=== PATIENT | female | born 1950 | race Caucasian/White ===

== ENCOUNTER 2019-01-16 05:06 | Day surgery (SDC) | payer MEDICARE, BC ==
[2019-01-11 10:04] LABS: BASOPHILS % (AUTO) 0.7 % (0-1); EOSINOPHILS # (AUTO) 0.2 X10'3 (0-0.9); HEMATOCRIT 37.1 % (35.0-45.0); HEMOGLOBIN 12.1 g/dl (12.0-16.0); LYMPHOCYTES # (AUTO) 1.6 X10'3 (1.1-4.8); LYMPHOCYTES % (AUTO) 23.6 % (21-51); MEAN CORPUSCULAR HEMOGLOBIN 28.9 PG (27.0-31.0); MEAN CORPUSCULAR HGB CONC 32.7 g/dL (33.0-36.5); MEAN CORPUSCULAR VOLUME 88.3 FL (78-98); MEAN PLATELET VOLUME 8.5 FL (7.4-10.4); MONOCYTES # (AUTO) 0.5 X10'3 (0-0.9); MONOCYTES % (AUTO) 7.8 % (2-12); NEUTROPHILS # (AUTO) 4.5 X10'3 (1.8-7.7); NEUTROPHILS % (AUTO) 64.9 % (42-75); PLATELET COUNT 294 X10'3 (140-440); RED CELL DISTRIBUTION WIDTH 16.4 % (11.5-14.5); WHITE BLOOD COUNT 6.9 X10'3 (4.5-11.0)
[2019-01-11 10:13] LABS: ALBUMIN 3.3 G/DL (3.4-5.0); ANION GAP 8 (8-16); BLOOD UREA NITROGEN 14 MG/DL (7-18); BUN/CREATININE RATIO 24.1 (6.6-38.0); CALCIUM 8.6 MG/DL (8.5-10.1); CHLORIDE 106 MMOL/L (99-107); CREATININE 0.58 MG/DL (0.40-0.90); GLUCOSE 119 MG/DL (70-104); POTASSIUM 4.2 MMOL/L (3.5-5.1); SODIUM 143 MMOL/L (135-145); TOTAL CARBON DIOXIDE 28.8 MMOL/L (24-32); eGFR > 90 ML/MIN
[2019-01-11 10:15] LABS: PARTIAL THROMBOPLASTIN TIME 24 SECONDS (22-32)
[2019-01-16] VITALS (13 sets, daily range): BP systolic 122–166; BP diastolic 45–72
[~2019-01-16] VITALS: Ht 157.5 cm; Wt 89.9 kg
[~2019-01-16 05:06] MED LIST: ASPI-41 PO; DULO-31 PO; EST1T PO; MELA3TAB64 PO; PROG200C11 PO; THYR120T14
[2019-01-16] MEDS ORDERED: METF500T20 PO (05:40)
[2019-01-16] MEDS ORDERED: LISI10TA4 PO (05:40)
[2019-01-16] MEDS ORDERED: LORazepam 0.5 MG tablet PO PRN (05:40)
[2019-01-16] MEDS ORDERED: LIDOcaine/PRILOcaine 5gm cream TP ONE (05:40)
[2019-01-16] MEDS ORDERED: PRAS25CA7 (05:40)
[2019-01-16] MEDS ORDERED: diphenhydrAMINE 25mg capsule PO PRN (05:40)
[2019-01-16] MEDS ORDERED: normal saline 1,000 ML IV SCH (05:40)
[2019-01-16] MEDS ORDERED: B12 (05:40)
[2019-01-16] MEDS ORDERED: fentaNYL/PF 50MCG/1 ML 2ML syringe ONE (06:04)
[2019-01-16] MEDS ORDERED: midazolam 2 mg/2 ml injection ONE (06:04)
[2019-01-16] MEDS ORDERED: verapamil 2.5 mg/ml inj IV ONE (06:04)
[2019-01-16] MEDS ORDERED: nitroGLYCERIN-Tridil 50MG/D5W 250 ML IV ONE (06:04)
[2019-01-16] MEDS ORDERED: iohexol 350MG/ML 100ml bottle IV ONE (06:05)
[2019-01-16] MEDS ORDERED: heparin 1,000unit/ml 10ml vial 10 ML ONE (06:05)
[2019-01-16] MEDS ORDERED: LIDOcaine 1% (10mg/ml)w/preservative injection 20ml MDV ONE (06:05)
[2019-01-16] MEDS ORDERED: proCHLORperazine 10 MG/2 ml inj IV PRN (07:20)
[2019-01-16] MEDS ORDERED: OXAZEpam 15mg capsule PO PRN (07:20)
[2019-01-16] MEDS ORDERED: HYDROcodone/acetaminophen 10/325mg tab PO PRN (07:20)
[2019-01-16] MEDS ORDERED: HYDROcodone/acetaminophen 5mg/325mg tablet PO PRN (07:20)
[2019-01-16] MEDS ORDERED: ondansetron/PF 4mg/2ml inj IV PRN (07:20)
== END 2019-01-16 10:00 | disposition home or self-care (01) ==
LOC: SSTAY O 05:06
PROVIDERS: ATTEND Internal Medicine Interventional Cardiology
DX: I25.10 Atherosclerotic heart disease of native coronary artery without angina pectoris (principal); E03.9 Hypothyroidism, unspecified; I10 Essential (primary) hypertension; E11.9 Type 2 diabetes mellitus without complications; E78.5 Hyperlipidemia, unspecified; F32.9 Major depressive disorder, single episode, unspecified; K21.9 Gastro-esophageal reflux disease without esophagitis; I35.1 Nonrheumatic aortic (valve) insufficiency; Z86.73 Personal history of transient ischemic attack (TIA), and cerebral infarction without residual deficits; Z79.899 Other long term (current) drug therapy; Z79.82 Long term (current) use of aspirin; Z79.84 Long term (current) use of oral hypoglycemic drugs; Z88.5 Allergy status to narcotic agent; Z88.2 Allergy status to sulfonamides; Z98.84 Bariatric surgery status; Z96.651 Presence of right artificial knee joint; Z98.890 Other specified postprocedural states; Z82.49 Family history of ischemic heart disease and other diseases of the circulatory system; Z83.3 Family history of diabetes mellitus
CPT/HCPCS: 36415; 80048; 82948; 85025; 85610; 85730; 93005; 93458; 99152; C1769; C1894; J1644; J2001; J2250; J3010; J7030; Q0163; Q9967; A5120; J3490

== ENCOUNTER 2022-10-30 06:28 | Day surgery (SDC) | payer MEDICARE, BC ==
[2022-10-21 11:44] LABS: BASOPHILS % (AUTO) 0.7 % (0-1); EOSINOPHILS # (AUTO) 0.2 X10'3 (0-0.9); LYMPHOCYTES # (AUTO) 1.7 X10'3 (1.1-4.8); LYMPHOCYTES % (AUTO) 24.6 % (21-51); MEAN CORPUSCULAR HGB CONC 32.4 g/dL (33.0-36.5); MEAN CORPUSCULAR VOLUME 92.7 FL (78-98); MEAN PLATELET VOLUME 8.4 FL (7.4-10.4); MONOCYTES # (AUTO) 0.7 X10'3 (0-0.9); MONOCYTES % (AUTO) 9.7 % (2-12); NEUTROPHILS # (AUTO) 4.3 X10'3 (1.8-7.7); PRE OP HEMATOCRIT 41.2 % (35.0-45.0); PRE OP HEMOGLOBIN 13.3 g/dL (12.0-16.0); PRE OP PLATELET COUNT 228 X10'3 (140-440); RED BLOOD COUNT 4.44 X10'6 (4.20-5.60); RED CELL DISTRIBUTION WIDTH 20.5 % (11.5-14.5)
[2022-10-21 11:56] LABS: ALBUMIN 3.7 G/DL (3.4-5.0); ALBUMIN/GLOBULIN RATIO 1.4 (1.1-1.5); ALKALINE PHOSPHATASE 88 IU/L (46-116); BLOOD UREA NITROGEN 29 MG/DL (7-18); BUN/CREATININE RATIO 38.2 (10.0-20.0); CALCIUM 8.9 MG/DL (8.5-10.1); CHLORIDE 105 MMOL/L (99-107); CREATININE 0.76 MG/DL (0.40-0.90); PRE OP ALT 34 U/L (30-65); PRE OP ANION GAP 6 (8-16); PRE OP AST 27 U/L (10-37); PRE OP BILIRUB, TOTAL 0.3 MG/DL (0.0-1.0); PRE OP GLUCOSE 100 MG/DL (70-104); PRE OP POTASSIUM 4.7 MMOL/L (3.4-5.1); PRE OP SODIUM 140 MMOL/L (135-145); TOTAL CARBON DIOXIDE 29.1 MMOL/L (24-32); TOTAL PROTEIN 6.4 G/DL (6.4-8.2); eGFR 75 ML/MIN
[~2022-10-30] VITALS: Ht 157.5 cm; Wt 83.6 kg
[~2022-10-30 06:28] MED LIST changes: +ACET-1008 PO; -ASPI-41 PO; +B COMPLEX; +DOCUMENT DATE & TIME OF BETA-BLOCKER PO ONE; -EST1T PO; +IBUP-24 PO; +IRON; +LISI10TA27 PO; +MELA10TA2 PO; -MELA3TAB64 PO; +METF-900 PO; +METO-395 PO; -PROG200C11 PO; +ROSU5TAB12 PO; -THYR120T14; +VIT D3; +WARF4TAB69 PO; +cefazolin 2gm/D5W 100mL 100 ML IV ONE; +famotidine 20mg tablet PO ONE; +ringers solution, lacted 1,000 ML IV SCH
[2022-10-30] MEDS ORDERED: BUPIVAcaine/PF 2.5mg/ml (0.25%) 10ml vial ONE (06:39)
[2022-10-30 07:15] VITALS: BP 144/105
[2022-10-30] MEDS ORDERED: LIDOcaine 0.5% (5mg/ml) 50ml vial ONE (07:19)
[2022-10-30] MEDS ORDERED: proCHLORperazine 10 MG/2 ml inj IV PRN (07:20)
[2022-10-30] MEDS ORDERED: acetaminophen 1,000mg/100ml IV 100 ML IV PRN (07:20)
[2022-10-30] MEDS ORDERED: ondansetron/PF 4mg/2ml inj IV PRN (07:20)
[2022-10-30] MEDS ORDERED: meperidine/PF 25mg/ml syringe IV PRN (07:20)
[2022-10-30] MEDS ORDERED: fentaNYL/PF 50MCG/1 ML 2ML syringe IV PRN ×2 (07:20)
[2022-10-30] MEDS ORDERED: labetalol 20mg/4ml (5mg/ml) syringe IV PRN (07:20)
[2022-10-30] MEDS ORDERED: hydrALAZINE 20mg/ml inj. IV PRN (07:20)
[2022-10-30] MEDS ORDERED: HYDROmorphone/PF 0.2 MG/ML SYRINGE IV PRN ×2 (07:20)
[2022-10-30] MEDS ORDERED: ringers solution, lacted 1,000 ML IV SCH (07:20)
[2022-10-30] MEDS ORDERED: midazolam 1 mg/ML 2ml injection ONE (08:07)
[2022-10-30] MEDS ORDERED: fentaNYL/PF 50MCG/1 ML 2ML syringe ONE (08:07)
[2022-10-30] MEDS ORDERED: propofol inj 20 ML IV ONE (08:16)
[2022-10-30 08:22] LABS: APTT 28 SECONDS (22-32)
[2022-10-30 08:34] VITALS: BP 180/73
--- NOTE | 2022-10-30 08:34 | NUR ---
Received from OR via [facility] , accompanied by Anesthesiologist and report given by Anesthesiolgist. patient with 20g piv in right ue running lr at 100. patient with splint to left ue that is cdi. fingers pwd and has + cap refill. denies pain at this itme. Addendum: 10/30/22 at 0847 by Ryder Sanchez RN, RN Amended: Links added.
[2022-10-30 08:40] VITALS: BP 160/61
[2022-10-30 08:50] VITALS: BP 156/58
[2022-10-30 09:00] VITALS: BP 149/63
--- NOTE | 2022-10-30 09:10 | NUR ---
ABLE TO SAFELY AMBULATE AND TRANSFER SELF. IV TAKEN OUT WITHOUT ANY COMPLICATIONS. ALL DISCHARGE INSTRUCTIONS COVERED WITH PATIENT AND ALL QUESTIONS ANSWERED. PATIENT TAKEN OUT VIA WHEELCHAIR TO PERSONAL VEHICLE WHERE FAMILY/FRIEND DROVE PATIENT HOME. Addendum: 10/30/22 at 0910 by Ryder Sanchez RN, RN Amended: Links added.
== END 2022-10-30 09:04 | disposition home or self-care (01) ==
LOC: PAS 06:28
PROVIDERS: ATTEND Orthopaedic Surgery Hand Surgery
DX: G56.02 Carpal tunnel syndrome, left upper limb (principal); M19.071 Primary osteoarthritis, right ankle and foot; G47.33 Obstructive sleep apnea (adult) (pediatric); E11.40 Type 2 diabetes mellitus with diabetic neuropathy, unspecified; F32.A Depression, unspecified; I10 Essential (primary) hypertension; J45.909 Unspecified asthma, uncomplicated; Z86.73 Personal history of transient ischemic attack (TIA), and cerebral infarction without residual deficits; Z79.899 Other long term (current) drug therapy; Z79.84 Long term (current) use of oral hypoglycemic drugs; Z79.01 Long term (current) use of anticoagulants; Z88.2 Allergy status to sulfonamides; Z96.651 Presence of right artificial knee joint; Z98.84 Bariatric surgery status; Z98.890 Other specified postprocedural states; Z72.89 Other problems related to lifestyle; Z83.3 Family history of diabetes mellitus
CPT/HCPCS: 36415; 64721; 80053; 82948; 85025; 85610; 85730; 93005; J0690; J2250; J2704; J3010; J3490; J7030; J7120; Z7506; Z7512; A4215

== ENCOUNTER 2023-01-29 05:49 | Day surgery (SDC) | payer MEDICARE, OTHER ==
[2023-01-22 13:48] LABS: BASOPHILS % (AUTO) 0.5 % (0-1); EOSINOPHILS # (AUTO) 0.2 X10'3 (0-0.9); LYMPHOCYTES # (AUTO) 1.5 X10'3 (1.1-4.8); LYMPHOCYTES % (AUTO) 24.7 % (21-51); MEAN CORPUSCULAR HEMOGLOBIN 33.4 PG (27.0-31.0); MEAN CORPUSCULAR HGB CONC 32.8 g/dL (33.0-36.5); MEAN CORPUSCULAR VOLUME 102.1 FL (78-98); MEAN PLATELET VOLUME 8.2 FL (7.4-10.4); MONOCYTES # (AUTO) 0.4 X10'3 (0-0.9); MONOCYTES % (AUTO) 6.4 % (2-12); NEUTROPHILS % (AUTO) 65.4 % (42-75); PRE OP HEMATOCRIT 42.7 % (35.0-45.0); PRE OP PLATELET COUNT 260 X10'3 (140-440); PRE OP WHITE BLOOD COUNT 6.1 10'3 (4.8-10.8); RED BLOOD COUNT 4.18 X10'6 (4.20-5.60); RED CELL DISTRIBUTION WIDTH 14.1 % (11.5-14.5)
[2023-01-22 14:01] LABS: ALBUMIN 3.6 G/DL (3.4-5.0); ALBUMIN/GLOBULIN RATIO 1.2 (1.1-1.5); ALKALINE PHOSPHATASE 107 IU/L (46-116); BLOOD UREA NITROGEN 18 MG/DL (7-18); BUN/CREATININE RATIO 23.1 (10.0-20.0); CALCIUM 8.8 MG/DL (8.5-10.1); CHLORIDE 106 MMOL/L (99-107); CREATININE 0.78 MG/DL (0.40-0.90); PRE OP ALT 41 U/L (30-65); PRE OP ANION GAP 12 (8-16); PRE OP AST 31 U/L (10-37); PRE OP BILIRUB, TOTAL 0.3 MG/DL (0.0-1.0); PRE OP GLUCOSE 149 MG/DL (70-104); PRE OP SODIUM 143 MMOL/L (135-145); TOTAL CARBON DIOXIDE 24.9 MMOL/L (24-32); TOTAL PROTEIN 6.6 G/DL (6.4-8.2); eGFR 72 ML/MIN
[~2023-01-29] VITALS: Ht 157.5 cm; Wt 84.7 kg
[2023-01-29 06:00] VITALS: BP 136/57; PULSE 65; RESP 16; TEMP 97.1; O2SAT 65; O2SAT 98
[2023-01-29] MEDS ORDERED: BUPIVAcaine/PF 2.5 mg/ml (0.25%) 30ml vial ONE (07:32)
[2023-01-29] MEDS ORDERED: LIDOcaine 0.5% (5mg/ml) 50ml vial ONE (08:18)
[2023-01-29] MEDS ORDERED: fentaNYL/PF 50MCG/1 ML 2ML syringe ONE (08:22)
[2023-01-29] MEDS ORDERED: midazolam 1 mg/ML 2ml injection ONE (08:22)
[2023-01-29] MEDS ORDERED: BUPIVAcaine/PF 2.5 mg/ml (0.25%) 30ml vial IJ ONE (08:38)
[2023-01-29] MEDS ORDERED: hydrALAZINE 20mg/ml inj. IV ONE (08:42)
[2023-01-29 08:43] VITALS: BP 140/105; PULSE 62; RESP 13; O2SAT 99
--- NOTE | 2023-01-29 08:43 | NUR ---
Received from OR via [facility] IN STABLE CONDITON , accompanied by Anesthesiologist and STEAMBLASTER report given by STEAMBLASTER AND Anesthesiolgist. Addendum: 01/29/23 at 0919 by Jemima Leger RN Amended: Links added.
[2023-01-29 08:50] VITALS: BP 164/64; PULSE 73; RESP 15; O2SAT 95
[2023-01-29 09:00] VITALS: BP 156/67; PULSE 64; RESP 13; O2SAT 95
[2023-01-29 09:10] VITALS: BP 135/68; PULSE 62; RESP 14; O2SAT 95
[2023-01-29 09:20] VITALS: BP 152/56; PULSE 60; RESP 11
--- NOTE | 2023-01-29 09:43 | NUR ---
PATIENT DISCHARGED FROM PACU IN STABLE CONDITION AFTER WRITTEN AND VERBAL DISCHARGE INSTRUCTIONS GIVEN. PATIENT GAVE VERBAL UNDERSTANDING OF INSTRUCTIONS GIVEN. PATIENT LEFT FACILITY VIA WHEELCHAIR WITH RN. Addendum: 01/29/23 at 0956 by Jemima Leger RN Amended: Links added.
== END 2023-01-29 09:43 | disposition home or self-care (01) ==
LOC: PAS 05:49
PROVIDERS: ATTEND Orthopaedic Surgery Hand Surgery
DX: G56.01 Carpal tunnel syndrome, right upper limb (principal); J45.909 Unspecified asthma, uncomplicated; I10 Essential (primary) hypertension; E11.42 Type 2 diabetes mellitus with diabetic polyneuropathy; F32.A Depression, unspecified; M19.071 Primary osteoarthritis, right ankle and foot; G47.33 Obstructive sleep apnea (adult) (pediatric); E66.9 Obesity, unspecified; Z68.33 Body mass index [BMI] 33.0-33.9, adult; Z88.5 Allergy status to narcotic agent; Z88.2 Allergy status to sulfonamides; Z86.73 Personal history of transient ischemic attack (TIA), and cerebral infarction without residual deficits; Z79.899 Other long term (current) drug therapy; Z79.01 Long term (current) use of anticoagulants; Z79.84 Long term (current) use of oral hypoglycemic drugs; Z98.890 Other specified postprocedural states; Z98.84 Bariatric surgery status; Z96.651 Presence of right artificial knee joint; Z72.89 Other problems related to lifestyle; Z83.3 Family history of diabetes mellitus
CPT/HCPCS: 36415; 64721; 80053; 82948; 85025; A6222; J0360; J0690; J2250; J3010; J3490; J7030; J7120; Z7506; Z7512; A4215; A6449